=== PATIENT | male | born 1990 | race Caucasian/White ===

== ENCOUNTER 2020-11-20 03:36 | Observation (INO) | payer OTHER, SELFPAY ==
[2020-11-20] VITALS (11 sets, daily range): BP systolic 110–150; BP diastolic 62–89; PULSE 84–118; RESP 15–20; TEMP 36.9–37.3; O2SAT 97–100; BMI 28.5
--- NOTE | ~2020-11-20 | CT_ITS ---
EXAMINATION: CT abdomen pelvis w con EXAM DATE: 11/20/2020 05:20 INDICATION: Incarcerated hernia. Right-sided abdominal pain radiating in the pelvis. TECHNIQUE: Spiral CT of the abdomen and pelvis was performed following intravenous injection of 100 m L Omnipaque 350. Axial, coronal and sagittal images of the abdomen and pelvis were reviewed. The do se-length product (DLP) for this examination was 456.19 mGy-cm. The exposure was tailored according to patient size (auto mA exposure control), and iterative reconstruction (ASIR) was used as additiona l dose reduction technique. There is no prior study for comparison. FINDINGS: There is large right-sided hydrocele. There is heterogeneous density to the right testicle. There is heterogeneous right-sided retroperitoneal mass measuring 6 x 6 x 10 cm causing some mass ef fect on the IVC and right common iliac vein, appearance more consistent with necrotic heterogeneously enhancing lymph node than hematoma. There is adjacent inflammation. The right kidney is pelvic in lo cation. There is no hydronephrosis. The liver, spleen, adrenal glands and pancreas are unremarkable. Gallbladder is unremarkable. No bi liary obstruction. The prostate is unremarkable. The bladder is unremarkable. There is no retrop eritoneal or pelvic lymphadenopathy. There are no findings to suggest appendicitis. The stomach and small bowel are unremarkable. There is expected amount of colonic stool. No free intraperitoneal gas. The heart is normal in size. T here are no pericardial or pleural effusions. The lung bases are unremarkable. The bones are unrema rkable. IMPRESSION: 1. Large retroperitoneal mass, could be metastatic lymphadenopathy given abnormal morphology to righ t testicle with large surrounding hydrocele. Hematoma less likely. 2. Right pelvic kidney, congenital variant. Reviewed, dictated and finalized at location A. IMPRESSION: 1. Large retroperitoneal mass, could be metastatic lymphadenopathy given abnor mal morphology to right testicle with large surrounding hydrocele. Hematoma le ss likely. 2. Right pelvic kidney, congenital variant.
--- NOTE | ~2020-11-20 | US_ITS ---
EXAMINATION: US scrotum doppler EXAM DATE: 11/20/2020 07:26 INDICATION: Testicular abnormality Testicular swelling . TECHNIQUE: Multiple grayscale and Doppler images of the testicles and scrotum were obtained bilateral ly. Correlation is made to CT abdomen pelvis same date. FINDINGS: Right testicle measures 5.0 x 4.3 x 3.4 cm and has diffusely abnormal heterogeneous hypoechoic echoge nicity. This is surrounded by a massive right-sided hydrocele. Two Doppler signals were obtained, one demonstrating expected low resistance arterial flow and the other has lower peak with apparent loss of diastolic flow. There are some echogenic foci within this testicle. Differential diagnosis for the se findings includes testicular neoplasm such as seminoma, which is favored diagnosis given CT obtain ed at same time, or sequela from prior, or subacute vascular compromise. Left testicle measures 5.2 x 3.7 x 2.1 cm and is morphologically normal. Low resistance Doppler flow confirmed. The epididymis is unremarkable. There is no hydrocele or varicocele. IMPRESSION: 1. Severe right hydrocele and diffusely abnormal heterogeneous testicular parenchyma, suspected more likely cancer given CT findings rather than sequela from prior or subacute vascular compromise (from intermittent or prior torsion, or the hydrocele). 2. Normal left testicle. Reviewed, dictated and finalized at location A. IMPRESSION: 1. Severe right hydrocele and diffusely abnormal heterogeneous testicular pare nchyma, suspected more likely cancer given CT findings rather than sequela from prior or subacute vascular compromise (from intermittent or prior torsion, or the hydrocele). 2. Normal left testicle.
[2020-11-20 04:22] LABS: Basophils Absolute Auto 0.1 K/mm3 (0.0-0.1); Basophils Percent Auto 0.3 % (0.2-1.2); Eosinophils Absolute Auto 0.1 K/mm3 (0-0.3); Eosinophils Percent Auto 0.3 % (0-4.4); Hematocrit 42.1 % (42.0-52.0); Immature Granulocyte Absolute 0.08 K/mm3 (0.00-0.031); Immature Granulocyte Percent A 0.5 % (0-0.5); Lymphocytes Absolute Auto 1.99 K/mm3 (0.9-3.2); Lymphocytes Percent Auto 12.3 % (18.3-44.2); Mean Corpuscular HGB Conc 35.6 g/dl (32-36); Mean Corpuscular Hemoglobin 31.6 pg (26-34); Mean Corpuscular Volume 88.8 fl (80-100); Mean Platelet Volume 9.5 fl (7.4-10.4); Monocytes Absolute Auto 2.3 K/mm3 (0.1-0.6); Monocytes Percent Auto 13.9 % (2.6-8.5); Neutrophils Absolute Auto 11.7 K/mm3 (1.3-6.7); Neutrophils Percent Auto 72.7 % (45.5-73.1); Platelet Count Result 260 k/mm3 (150-375); Red Blood Count 4.74 M/mm3 (4.6-6.20); Red Cell Distribution Width 12.7 % (11.5-14.5); White Blood Count 16.1 K/mm3 (4.5-10.0)
[2020-11-20] MEDS: SODIUM CHLORIDE 0.9% IV 1,000 ML 999 ML IV CONT ×2 (04:22→07:11)
[2020-11-20] MEDS: ONDANSETRON INJ 4 MG/2 ML VIAL IV PUSH ×2 (04:23→23:05)
[2020-11-20] MEDS: MORPHINE SULFATE (*CRX) 4 MG/ML INJ IV PUSH ×2 (04:23→23:05)
[2020-11-20 04:49] LABS: Alanine Aminotransferase 26 U/L (4-50); Albumin Level 4.3 g/dL (3.5-5.1); Alkaline Phosphatase 81 U/L (38-126); Anion Gap 5 mmol/L (8-16); Aspartate Amino Transferase 27 U/L (17-59); Bilirubin,Total 0.6 mg/dL (0.2-1.3); Blood Urea Nitrogen 12 mg/dL (9-20); Calcium 9.3 mg/dL (8.4-10.2); Carbon Dioxide 31 mmol/L (22-30); Chloride 97 mmol/L (98-107); Estimated CRCL calculation 81 ml/min; Estimated Glomerular Filt Rate > 60; Glucose 110 mg/dL (65-110); Potassium 3.9 mmol/L (3.4-5.0); Sodium 133 mmol/L (137-145)
[2020-11-20 04:50] LABS: Lactic Acid Reflex 0.9 mmol/L (0.7-2.1)
--- NOTE | 2020-11-20 04:55 | PC.NURSE ---
Pt to CT via stretcher at this time.
--- NOTE | 2020-11-20 05:58 | ED.GENADULT ---
HPI - General Adult General Chief complaint: Abdominal Pain Stated complaint: right inguinal hernia Time Seen by Provider: 11/20/20 03:59 History of Present Illness HPI narrative: Patient is a 30-year-old male who presents ER with swelling to his groin region. Ongoing over the last couple months. Waxes and wanes in intensity of pain. Reports he has had increased discomfort over the last 3 days and that he developed subjective fever this evening. This prompted him to come in tonight. Reports history of inguinal hernia repair past. Reports he does not have a bowel movement in 3 days but has no abdominal distention. He is passing gas. No nausea or vomiting or belching. No difficulty urinating. Related Data Home Medications Medication Instructions Recorded Confirmed No Home Medications 11/20/20 11/20/20 Allergies Allergy/AdvReac Type Severity Reaction Status Date / Time No Known Allergies Allergy Unknown Verified 11/20/20 03:44 Review of Systems Review of Systems: All systems reviewed & are unremarkable except as noted in HPI and below Constitutional: Constitutional: Denies chills, Denies fever(s) and Denies weakness ENT: Denies nasal congestion and Denies sore throat Gastrointestinal: Gastrointestinal: Denies abdominal pain, Denies bloating, Reports constipation, Denies diarrhea, Denies nausea and Denies vomiting Genitourinary: Genitourinary: Denies dysuria, Denies testicular pain, Denies urinary frequency and Denies urinary incontinence PMF Past Medical History Medical History (Updated 11/20/20 @ 07:36 by Orlin Chapman MD) Healthy adult male Pelvic kidney Surgical History Surgical History (Updated 11/20/20 @ 07:31 by Orlin Chapman MD) H/O inguinal hernia repair Social History Social History (Updated 11/20/20 @ 07:31 by Orlin Chapman MD) Smoking status: Former smoker Exam Narrative: GENERAL: Well-appearing, well-nourished, and in no acute distress. HEAD: Normocephalic, atraumatic. ENT: Mucous membranes moist. CHEST: Clear to auscultation. No respiratory distress. HEART: Regular rate and rhythm. Normal peripheral pulses. ABDOMEN: Soft, nontender, nondistended. : Prominent swelling right inguinal region extending into the right scrotum. Right testicle appears affixed this swelling. It is not reducible. No testicular tenderness. Normal-appearing penis. Left testicle normal. EXTREMITIES: Normal range of motion. No edema. SKIN: Warm, dry, no rash. NEURO: Alert and oriented x3. PSYCH: Normal mood and affect. Course Reevaluation(s) Reevaluation #1: Patient informed of results. He says in hindsight he has had some right upper quadrant abdominal discomfort over the last couple months but has not been severe. Is worse with certain movements and bending. He denies any weight loss. I have contacted [facility] and Dr. Hernandes with the hospitalist service has accepted the patient. We will obtain ultrasound while waiting for transfer. Patient is aware of the seriousness of his condition and the location of the masses. I have also updated the patient's uncle and his significant other at his request. Date: 11/20/20 Time: 07:00 Reevaluation #2: It has been over 12 hours and we are still waiting on a bed at [facility]. Patient be admitted for observation at this hospital while we wait for bed. Date: 11/20/20 Time: 22:00 Vital Signs Vital signs: Vital Signs Temperature 98.5 F 11/20/20 03:40 Pulse Rate 110 H 11/20/20 03:40 Respiratory Rate 20 11/20/20 03:40 Blood Pressure 150/89 H 11/20/20 03:40 Pulse Oximetry 100 11/20/20 03:40 Temperature 98.5 F 11/20/20 03:40 Pulse Rate 84 11/20/20 18:40 Respiratory Rate 16 11/20/20 18:40 Blood Pressure 128/64 11/20/20 18:40 Pulse Oximetry 98 11/20/20 18:40 Medical Decision Making Vital Signs Vital Signs: Vital Signs Temperature 98.5 F 11/20/20 03:40 Pulse Rate 110 H 11/20/20 03:40 Respiratory Rate 20
--- NOTE | 2020-11-20 06:53 | PC.NURSE ---
This RN spoke with Saumya at [facility]. States she will call when pt has a bed.
[2020-11-20 07:10] LABS: EDCOVIDSCREEN Negative (Negative)
--- NOTE | 2020-11-20 12:25 | PC.NURSE ---
pt aware of delay. no needs at this time. resting in room
--- NOTE | 2020-11-20 17:00 | PC.NURSE ---
still no update on bed, orders received for pain and nausea prn's. given food and drinks. no other needs at this time
--- NOTE | 2020-11-20 20:08 | PC.NURSE ---
pt in room, resting, no needs at this time, no updates from Prashant
--- NOTE | 2020-11-20 22:17 | PC.NURSE ---
pt to be admitted to floor due to length of wait.
--- NOTE | 2020-11-20 23:10 | PM.IMHP ---
H&P: HPI History of Present Illness Date/Time: 11/20/20 23:10 this is a 30-year-old male patient who has had a past medical history of having inguinal hernia x2 in the past with repair. The patient stated that he is noticed that he has had a larger scrotum on the right for several months. The patient stated he felt that this was just another hernia and was not able to get it checked out. The patient came to the emergency room due to swelling and increased pain to his right groin. This is ongoing for several months it waxes and wanes in intensity of pain. Over last 3 days his pain is gotten worse and he feels that he has a fever objectively. The patient stated he has not had a bowel movement in 3 days he is passing gas. He does not have any nausea vomiting and no difficulty urinating. Abdominal CT was read as large retroperitoneal mass, could be metastatic lymphadenopathy given abnormal morphology to right testicle with large surrounding Hydrocil hematoma least likely. Right pelvic kidney congenital variant. [facility] had been notified and had been accepted however no beds are available at this time. Is recommended that an ultrasound be obtained. They ultrasound was read as1. Severe right hydrocele and diffusely abnormal heterogeneous testicular parenchyma, suspected more likely cancer given CT findings rather than sequela from prior or subacute vascular compromise (from intermittent or prior torsion, or the hydrocele). 2. Normal left testicle. The patient was given Zofran, morphine, Tylenol, and IV fluids. The patient had been down in the emergency room since 558 this morning and is awaiting a bed for [facility]. Report was given to my collaborative Dr.. Vega who agreed to the admission into the hospital to the patient can get a bed at [facility]. Patient's white count is 16.1. The patient is being admitted to observation status on date of service 11/20/2020 Chief Complaint: Right scrotal pain Review of Systems Review of Systems: All systems reviewed & are unremarkable except as noted in HPI and below Constitutional: Constitutional: Reports as per HPI and Reports no additional constitutional complaints Eyes: Eyes: Reports as per HPI and Reports no additional eye complaints ENT: Reports system reviewed and no additional complaints, except as documented and Reports Normal hearing present Cardiovascular: Cardiovascular: Reports no additional cardiovascular complaints Respiratory: Respiratory: Reports no additional respiratory complaints and Reports no additional respiratory complaints Gastrointestinal: Gastrointestinal: Reports as per HPI and Reports no additional gastrointestinal complaints Musculoskeletal: Musculoskeletal: Reports no additional musculoskeletal complaints Integumentary/Breasts: Skin/Breast: Reports system reviewed and no additional complaints, except as docu and Reports as per HPI Neurologic: Reports system reviewed and no additional complaints, except as documented, Reports as per HPI and Reports Normal hearing present Psychiatric: Psychiatric: Reports no additional psychiatric complaints and Reports as per HPI Endocrine: Endocrine: Reports no additional endocrine complaints Hematologic/Lymphatic: Hematologic/Lymphatic: Reports no additional hematologic/lymphatic complaints Allergic/Immunologic: Allergic/Immunologic: Reports no additional allergic/immunologic complaints [facility] Past Medical History Medical History (Updated 11/20/20 @ 23:18 by Sanjana Vu NP) Healthy adult male Pelvic kidney Tobacco abuse Surgical History Surgical History (Updated 11/20/20 @ 23:19 by Sanjana Vu NP) H/O inguinal hernia repair X2 Family History Family History (Updated 11/20/20 @ 23:20 by Sanjana Vu NP) Mother Breast cancer Father Diabetes mellitus Social History Social History (Updated 11/20/20 @ 23:20 by Sanjana Vu NP) Social History: The patient is from his and he has 3 children. Th
--- NOTE | 2020-11-20 23:51 | ADMGEN ---
This patient, Nash Rod, was admitted to [facility]. Patient/family oriented to hospital policies and general routines including ID bracelet, bed and alarms, visiting hours, pain management, procedures, bathroom and other care routines, personal items, smoking policy, room service/diet, and visiting hours. Information on how to activate the Rapid Response Team has been discussed. Patient/Family are encouraged to report perceived risks to care and to ask questions if they do not understand what they are told or what they should do.
[2020-11-20] MEDS: HYDROcodone/acetaminophen (*CRX) 5-325 MG TABLET 1 TAB PO (23:58)
[2020-11-20] MEDS: NICOTINE (*PBKC) 21 MG PATCH 1 PATCH TRANSDERM (23:59)
[2020-11-21 05:36] VITALS: BP 117/82; PULSE 78; RESP 16; TEMP 36.9; O2SAT 98
[2020-11-21] MEDS: MORPHINE SULFATE (*CRX) 4 MG/ML INJ IV PUSH (05:43)
[2020-11-21 06:59] LABS: Alanine Aminotransferase 24 U/L (4-50); Albumin Level 3.7 g/dL (3.5-5.1); Alkaline Phosphatase 74 U/L (38-126); Anion Gap 6 mmol/L (8-16); Aspartate Amino Transferase 23 U/L (17-59); Bilirubin,Total 0.5 mg/dL (0.2-1.3); Blood Urea Nitrogen 12 mg/dL (9-20); Calcium 8.9 mg/dL (8.4-10.2); Carbon Dioxide 31 mmol/L (22-30); Chloride 100 mmol/L (98-107); Estimated CRCL calculation 88 ml/min; Estimated Glomerular Filt Rate > 60; Glucose 89 mg/dL (65-110); Lactate Dehydrogenase 1584 U/L (313-618); Magnesium 2.2 mg/dL (1.6-2.3); Potassium 4.8 mmol/L (3.4-5.0); Sodium 137 mmol/L (137-145)
[2020-11-21 07:38] LABS: Basophils Absolute Auto 0.1 K/mm3 (0.0-0.1); Basophils Percent Auto 0.6 % (0.2-1.2); Eosinophils Absolute Auto 0.2 K/mm3 (0-0.3); Eosinophils Percent Auto 2.1 % (0-4.4); Hematocrit 39.7 % (42.0-52.0); Hemoglobin 13.2 g/dL (14.0-18.0); Immature Granulocyte Absolute 0.05 K/mm3 (0.00-0.031); Immature Granulocyte Percent A 0.5 % (0-0.5); Lymphocytes Absolute Auto 2.26 K/mm3 (0.9-3.2); Lymphocytes Percent Auto 21.8 % (18.3-44.2); Mean Corpuscular HGB Conc 33.2 g/dl (32-36); Mean Corpuscular Hemoglobin 30.8 pg (26-34); Mean Corpuscular Volume 92.5 fl (80-100); Monocytes Absolute Auto 1.6 K/mm3 (0.1-0.6); Monocytes Percent Auto 14.9 % (2.6-8.5); Neutrophils Absolute Auto 6.3 K/mm3 (1.3-6.7); Neutrophils Percent Auto 60.1 % (45.5-73.1); Platelet Count Result 276 k/mm3 (150-375); Red Blood Count 4.29 M/mm3 (4.6-6.20); Red Cell Distribution Width 13.2 % (11.5-14.5); White Blood Count 10.4 K/mm3 (4.5-10.0)
[2020-11-21 07:54] VITALS: BP 134/79; PULSE 77; RESP 16; TEMP 36.7; O2SAT 94
[2020-11-21] MEDS: NICOTINE (*PBKC) 21 MG PATCH 1 PATCH TRANSDERM (08:31)
[2020-11-21] MEDS: DOCUSATE SODIUM 100 MG CAPSULE PO (08:31)
[2020-11-21] MEDS: HYDROcodone/acetaminophen (*CRX) 5-325 MG TABLET 1 TAB PO (08:35)
--- NOTE | 2020-11-21 10:43 | PM.TDS ---
Transfer Discharge Sum: Prov Provider Date of admission: 11/20/20 21:59 Primary care physician: SENIOR FIRE PROTECTION ENGINEER PHYSICIAN Admitting clinician: Molina Gerardo MD Attending physician on admission: Molina Gerardo Attending physician on discharge: Bridget Sheldon Discharging clinician: Jamari Noel Anticipated date of transfer: 11/21/20 Receiving physician/facility: [facility] DS: Admitting Diagnosis Discharge Date 11/21/20 at 10:00am Admitting Diagnosis Enlarged right testicle possible cancer with lymphadenopathy in the right inguinal area DS: Discharge Diagnosis Discharge Diagnosis (1) Mass of right testicle: Code(s): N50.89 - Other specified disorders of the male genital organs Status: Acute Assessment and Plan: The patient is awaiting a bed at [facility]. The patient is wanting to see his children and was wanting to leave the hospital. I explained to him that he is on a waiting list to go to [facility] however if he signs out against medical advice that he will lose his spot for bed. The patient stated that he just wanted to go home and be with his kids. It was explained to him that he would have to sign out against medical advice if he wanted to go home. The patient requested to see his children prior to leaving this hospital to get in the ambulance to go to [facility]. I spoke with the datawarehouse developer who stated that the patient would be able to see his family outside while getting into the ambulance to go to [facility] during her shift however she could not guarantee this for the next shift. The patient was then agreeable to stay in the hospital overnight and wait for a bed at [facility]. At this time I did not anticoagulate the patient in the event that the patient would need to have a biopsy or surgical procedure. I explained to the patient that he would be best served at [facility] due to the complexity of his condition. The patient verbalized understanding. Patient got a bed at [facility] and report has been given, patient is worried and is experiencing anxiety (2) Hydrocele: Code(s): N43.3 - Hydrocele, unspecified Status: Acute Assessment and Plan: See the CT results and ultrasound results. Continue with pain medication. (3) Intraabdominal mass: Code(s): R19.00 - Intra-abdominal and pelvic swelling, mass and lump, unspecified site Status: Acute Assessment and Plan: Continue with pain medication. (4) Tobacco abuse: Code(s): Z72.0 - Tobacco use Status: Chronic Assessment and Plan: We have spent approximately 5 minutes talking about smoking cessation and the patient is agreeable to nicotine patch. Transfer Discharge Sum: Med Medications Active and Home Medications: Home Medications No Home Medications 11/20/20 [History Confirmed 11/20/20] Active Medications Acetaminophen (Acetaminophen 325 Mg Tablet) 650 mg PO Q4H PRN PRN Reason: Mild Pain (1-3) or Fever Hydrocodone Bitart/Acetaminophen (Hydrocodone/Acetaminophen (*Crx) 5-325 Mg Tablet) 1 tab PO Q4H PRN PRN Reason: Pain Rated 4-6 Last Admin: 11/21/20 08:35 Dose: 1 tab Documented by: Docusate Sodium (Docusate Sodium 100 Mg Capsule) 100 mg PO Q12HR [facility] Last Admin: 11/21/20 08:31 Dose: 100 mg Documented by: Lorazepam (Lorazepam Inj (*Crx) 2 Mg/Ml Vial) 0.5 mg IV PUSH Q6H PRN PRN Reason: Anxiety Miconazole Nitrate (Miconazole 2% Antifungal Ointment 56 Gm) 1 applic TOPICAL Q12HR [facility] Last Admin: 11/21/20 08:30 Dose: Not Given Documented by: Morphine Sulfate (Morphine Sulfate (*Crx) 4 Mg/Ml Inj) 4 mg IV PUSH Q2H PRN PRN Reason: Pain Rated 7-10 Last Admin: 11/21/20 05:43 Dose: 4 mg Documented by: Nicotine (Nicotine (*Pbkc) 21 Mg Patch) [facility] Last Admin: 11/21/20 08:31 Dose: 1 patch Documented by: Ondansetron HCl (Ondansetron Inj 4 Mg/2 Ml Vial) 4 mg IV PUSH Q4H PRN PRN Reason: Nausea Last Admin: 11/20/20 23:05 Dose: 4 mg Documented
== END 2020-11-21 11:04 ==
LOC: ANHED 22:01 → ANHCPC 23:44
PROVIDERS: Nurse Practitioner; Admitting Provider Internal Medicine; Emergency Provider Emergency Medicine; Visit Provider Internal Medicine
DX: R19.09 Other intra-abdominal and pelvic swelling, mass and lump (principal); N50.89 Other specified disorders of the male genital organs; N43.3 Hydrocele, unspecified; F17.210 Nicotine dependence, cigarettes, uncomplicated; R41.9 Unspecified symptoms and signs involving cognitive functions and awareness; Z20.822 Contact with and (suspected) exposure to COVID-19
CPT/HCPCS: 36415; 74177; 76870; 80053; 83605; 83615; 83735; 84443; 85025; 87426; 93976; 96361; 96374; 96375; 96376; 99285; A9270; C9803; G0378; G0379; J2270; J2405; J7030; Q9967

== ENCOUNTER 2022-03-20 08:30 | Outpatient (CLI) | payer OTHER, SELFPAY ==
[2022-03-20 09:55] LABS: Basophils Absolute Auto 0.1 K/mm3 (0.0-0.1); Basophils Percent Auto 0.6 % (0.2-1.2); Eosinophils Absolute Auto 0.1 K/mm3 (0-0.3); Eosinophils Percent Auto 1.5 % (0-4.4); Hemoglobin 16.2 g/dL (14.0-18.0); Immature Granulocyte Absolute 0.05 K/mm3 (0.00-0.031); Immature Granulocyte Percent A 0.5 % (0-0.5); Lymphocytes Absolute Auto 1.32 K/mm3 (0.9-3.2); Lymphocytes Percent Auto 14.1 % (18.3-44.2); Mean Corpuscular HGB Conc 33.1 g/dl (32-36); Mean Corpuscular Hemoglobin 30.3 pg (26-34); Mean Corpuscular Volume 91.6 fl (80-100); Mean Platelet Volume 9.3 fl (7.4-10.4); Monocytes Percent Auto 10.9 % (2.6-8.5); Neutrophils Absolute Auto 6.8 K/mm3 (1.3-6.7); Neutrophils Percent Auto 72.4 % (45.5-73.1); Platelet Count Result 450 k/mm3 (150-375); Red Blood Count 5.35 M/mm3 (4.6-6.20); Red Cell Distribution Width 12.9 % (11.5-14.5); White Blood Count 9.3 K/mm3 (4.5-10.0)
[2022-03-20 10:07] LABS: Alanine Aminotransferase 128 U/L (6-50); Albumin Level 4.3 g/dL (3.5-5.1); Alkaline Phosphatase 102 U/L (38-126); Anion Gap 7 mmol/L (8-16); Aspartate Amino Transferase 62 U/L (17-59); Bilirubin,Total 0.4 mg/dL (0.2-1.3); Blood Urea Nitrogen 12 mg/dL (9-20); Calcium 9.1 mg/dL (8.4-10.2); Carbon Dioxide 28 mmol/L (22-30); Chloride 103 mmol/L (98-107); Cholesterol 156 mg/dL (0-200); Estimated Glomerular Filt Rate > 60; Glucose 74 mg/dL (65-110); HDL Direct 47 mg/dL; Potassium 4.5 mmol/L (3.4-5.0); Sodium 138 mmol/L (137-145); Triglycerides 109 mg/dL (<150)
[2022-03-20 10:19] LABS: LDL Cholesterol Direct 72 mg/dL
[2022-03-20 10:39] LABS: Thyroid Stimulating Hormone 0.899 uIU/mL (0.465-4.680)
[2022-03-20 12:02] LABS: Hepatitis C Virus Antibody Negative (Negative)
[2022-03-20 13:32] LABS: Vitamin D 25 Hydroxy 21.7 ng/mL
[2022-03-21 13:54] LABS: Rapid Plasma Reagin Reactive (NonReactive)
[2022-03-22 14:37] LABS: HIV 1 2 Ag Ab 4th Gen w Rflxs Non-reactive (Non-reactive)
[2022-03-23 19:21] LABS: Treponema pallidum Ab FTA ABS Reactive (Nonreactive)
[2022-03-24 08:47] LABS: HSV 1 IgM Screen Negative (Negative); HSV 2 IgM Screen Negative (Negative)
== END 2022-03-20 08:31 | disposition home or self-care (01) ==
LOC: ANHLAB 08:33
DX: F63.0 Pathological gambling (principal)
CPT/HCPCS: 36415; 80053; 80061; 82306; 83036; 84443; 85025; 86592; 86695; 86696; 86780; 86803; 87389; 87491; 87591; 87661

== ENCOUNTER 2023-03-29 15:54 | Emergency (ER) | payer OTHER, SELFPAY ==
--- NOTE | 2023-03-29 16:05 | ED.URI ---
HPI - URI/Sore Throat General Chief Complaint: Upper Respiratory Infection Stated Complaint: Sinus/Ear Irritation Time Seen by Provider: 03/29/23 16:06 Source: patient Mode of arrival: ambulatory Limitations: no limitations History of Present Illness HPI Narrative: Nash is a 32-year-old male patient presenting to clinic today with complaints sinus congestion, cough, and chest congestion times 2-3 weeks. Reports he is bringing up some green/yellow phlegm. Does have a lot of sinus pressure and congestion. No known fever or chills. Denies any chest pain or shortness of breath. MD elicited complaint: sore throat and nasal congestion Related Data Allergies Allergy/AdvReac Type Severity Reaction Status Date / Time No Known Allergies Allergy Unknown Verified 11/20/20 03:44 Review of Systems Review of Systems: Pertinent positives per HPI. Patient denies any fever, chills, rash, headache, visual changes, dizziness, shortness of breath, chest pain, palpitations, nausea, vomiting, diarrhea, constipation, abdominal pain, or any urinary issues. [facility] Past Medical History Medical History (Updated 03/29/23 @ 16:14 by Cedric Mcneill APRN) Healthy adult male Pelvic kidney Tobacco abuse Surgical History Surgical History (Updated 11/20/20 @ 23:19 by Sanjana Vu NP) H/O inguinal hernia repair X2 Family History Family History (Updated 11/20/20 @ 23:20 by Sanjana Vu NP) Mother Breast cancer Father Diabetes mellitus Social History Social History (Updated 11/20/20 @ 23:20 by Sanjana Vu NP) Social History: The patient is from his and he has 3 children. The patient is unemployed. He lives with his uncle. The patient occasionally uses marijuana. He quit drinking some time back. The patient smokes a pack a cigarettes a day. The patient stated that his aunt Jimena Rod is his durable power of abrasive water jet cutter operator for healthcare. The patient desires to be a full code. Smoking packs per day: 1 Smoking cigarettes per day: 20.0 Years smoked: 15 Smoking pack-years: 15.00 Smoking status: Current every day smoker Tobacco type: cigarettes Alcohol intake: never Substance use: never Spiritual care concerns: No Comments At the time of my signature, I reviewed and agree with the nursing past medical, surgical, social, and family history. There is no relevant family history pertinent to the patient complaint. Exam Narrative: General: Well-developed, well nourished, in no apparent distress Head: Normocephalic, atraumatic Eyes: Pupils equally round and reactive to light bilaterally, EOM intact, sclera and conjunctive clear, no discharge, lids normal Ears: TMs intact and congested, ear canals clear, no drainage, grossly hearing normal. Nose: Nares patent, yellow nasal discharge, moderate inflammation, maxillary and frontal sinus tenderness. Mouth: Oral pharynx red without lesions or masses, good dentition, MMM. Neck: Supple, trachea midline, no enlargement of anterior or posterior cervical nodes, no thyroid masses or goiter palpable. Cardio: Regular rate and rhythm, s1 and s2 normal, no murmur appreciated. Resp: Clear to auscultation bilaterally, no rhonchi, rales, wheezing or rubs Course Course Emergency Course: Portions of this record may have been created with voice recognition software. Level of Care: Express Care Visit Vital Signs Vital signs: Vital signs reviewed MDM - URI/Sore Throat MDM Narrative Medical decision making narrative: At the time of visit patient is resting comfortably on the exam table. Patient appears to be nontoxic. Plan: Discussed patient's high blood pressure in the clinic today. Will send him in some prednisone but told him to check his blood pressure prior to taking this as the prednisone can increase it. Will also place him on Augmentin to treat acute bacterial rhino sinusitis. Supportive measures were discussed with the pa
[2023-03-29 16:08] VITALS: BP 163/90; PULSE 98; RESP 16; TEMP 37.1; O2SAT 98
== END 2023-03-29 16:18 | disposition home or self-care (01) ==
PROVIDERS: Emergency Provider Nurse Practitioner Family
DX: J01.90 Acute sinusitis, unspecified (principal); F17.210 Nicotine dependence, cigarettes, uncomplicated
CPT/HCPCS: 99213; G0463

== ENCOUNTER 2024-02-12 08:00 | Emergency (ER) | payer BC, SELFPAY ==
--- NOTE | ~2024-02-12 | CT_ITS ---
CT abdomen pelvis w con Ordering provider: Clarence Delaney MD History: 33 years Male with . LUQ pain . Comparison: None. Technique: CT abdomen and pelvis with IV and without oral contrast. Automated exposure control and it erative reconstruction technique were employed. The dose-length product was 574.29 mGy-cm. 100 mL Omn ipaque 350 was given IV. Findings: VISUALIZED LOWER CHEST: Normal. Trace of pericardial effusion. UPPER ABDOMINAL ORGANS: Liver: Normal. Gallbladder: Normal. Spleen: Normal. Stomach/duodenum: Normal. Pancreas: Normal. Adrenals: Normal. Kidneys: Minimal fullness of the left renal pelvis is noted. No stones seen.. Ectopic right kidney in the right side of the pelvis is seen PELVIC ORGANS: The bladder shows slight thickening in the posterior wall. BOWEL AND MESENTERY: Colon: No evidence of diverticulitis. Fecal material is loaded in the colon suggestive of constipatio n. Spastic areas seen in the sigmoid colon. Normal appendix. Small Bowel: Normal. No obstruction. Peritoneum/mesentery: No free air or free fluid. No mesenteric lymphadenopathy. Small mesenteric lymp h nodes are noted. RETROPERITONEUM: Normal aorta. Single origin of the celiac and superior mesenteric arteries. No retr operitoneal lymphadenopathy. MUSCULOSKELETAL: Superficial soft tissues: The superficial soft tissues are normal. Bones: Normal spine. IMPRESSION: 1. No evidence of appendicitis, diverticulitis or intestinal obstruction. 2. Ectopic right kidney seen in the right side of pelvis. 3. Minimal fullness of the left renal pelvis with no stones. 4. Slight thickening of the wall of the bladder posteriorly. Clinical evaluation advised. 5. Constipation. Reviewed, dictated and finalized at location A. OUT WORKER IMPRESSION: 1. No evidence of appendicitis, diverticulitis or intestinal obstruction. 2. Ectopic right kidney seen in the right side of pelvis. 3. Minimal fullness of the left renal pelvis with no stones. 4. Slight thickening of the wall of the bladder posteriorly. Clinical evaluati on advised. 5. Constipation.
[2024-02-12 08:06] VITALS: BP 143/87; PULSE 77; RESP 18; O2SAT 100
[2024-02-12 08:42] LABS: Basophils Absolute Auto 0.1 K/mm3 (0.0-0.1); Basophils Percent Auto 0.5 % (0.2-1.2); Eosinophils Absolute Auto 0.2 K/mm3 (0-0.3); Eosinophils Percent Auto 1.5 % (0-4.4); Hematocrit 42.5 % (42.0-52.0); Hemoglobin 14.9 g/dL (14.0-18.0); Immature Granulocyte Absolute 0.03 K/mm3 (0.00-0.031); Immature Granulocyte Percent A 0.3 % (0-0.5); Lymphocytes Absolute Auto 1.58 K/mm3 (0.9-3.2); Lymphocytes Percent Auto 15.7 % (18.3-44.2); Mean Corpuscular HGB Conc 35.1 g/dl (32-36); Mean Corpuscular Hemoglobin 31.1 pg (26-34); Mean Corpuscular Volume 88.7 fl (80-100); Mean Platelet Volume 9.6 fl (7.4-10.4); Monocytes Absolute Auto 0.7 K/mm3 (0.1-0.6); Monocytes Percent Auto 6.7 % (2.6-8.5); Neutrophils Absolute Auto 7.6 K/mm3 (1.3-6.7); Neutrophils Percent Auto 75.3 % (45.5-73.1); Platelet Count Result 302 k/mm3 (150-375); Red Blood Count 4.79 M/mm3 (4.6-6.20); Red Cell Distribution Width 12.2 % (11.5-14.5)
[2024-02-12 08:48] LABS: Add Urine Microscopic? NO; Appearance Urine Clear (Clear); Bilirubin Urine Negative (Negative); Blood Urine Negative (Negative); Color Urine Yellow (Yellow); Glucose Urine UA Negative (Negative); Ketones Urine Negative (Negative); Leukocyte Esterase Ur Negative LEU/UL (Negative); Nitrate Urine Negative (Negative); Protein Urine Negative (Negative); Specific Grav Ur 1.006 (1.001-1.035); Urobilinogen Urine 0.2 mg/dL (<2.0); pH Urine 5.5 (5.0-9.0)
[2024-02-12 09:03] LABS: Estimated CRCL calculation 93 ml/min; Estimated Glomerular Filt Rate > 60
[2024-02-12 09:05] LABS: Alanine Aminotransferase 33 U/L (6-50); Albumin Level 4.6 g/dL (3.5-5.1); Alkaline Phosphatase 85 U/L (38-126); Anion Gap 6 mmol/L (4-12); Aspartate Amino Transferase 39 U/L (17-59); Bilirubin,Total 0.5 mg/dL (0.2-1.3); Blood Urea Nitrogen 18 mg/dL (9-20); Calcium 9.5 mg/dL (8.4-10.2); Carbon Dioxide 28 mmol/L (22-30); Chloride 105 mmol/L (98-107); Estimated CRCL calculation 93 ml/min; Estimated Glomerular Filt Rate > 60; Glucose 104 mg/dL (65-110); Lipase 372 U/L (23-300); Potassium 4.3 mmol/L (3.4-5.0); Sodium 139 mmol/L (137-145)
--- NOTE | 2024-02-12 09:59 | ED.ABDPAIN ---
HPI - Abdominal Pain General Chief Complaint: Abdominal Pain Stated Complaint: left flank pain Time Seen by Provider: 02/12/24 08:06 Source: patient Mode of arrival: ambulatory Limitations: no limitations History of Present Illness HPI narrative: 33-year-old with a history of testicular cancer under remission here with the complaints of left upper abdominal pain for past few days. 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 He denies having any nausea, vomiting or diarrhea. Patient states that it has a tender spot on the left lower rib margin. MD elicited complaint: abdominal pain Pertinent past history: none Onset (ago): week(s) (1) Pain Consistency: constant Location: LUQ Severity: moderate Quality: aching Radiation: none Migration to: no migration Exacerbating factors: movement Relieving factors: nothing Context: confirms other (Heavy lifting) Associated symptoms: denies other symptoms Related Data Allergies Allergy/AdvReac Type Severity Reaction Status Date / Time No Known Allergies Allergy Unknown Verified 02/12/24 08:08 Review of Systems Review of Systems: All systems reviewed & are unremarkable except as noted in HPI and below Constitutional: Constitutional: Reports no additional constitutional complaints Eyes: Eyes: Reports no additional eye complaints Cardiovascular: Cardiovascular: Reports no additional cardiovascular complaints Gastrointestinal: Gastrointestinal: Reports as per HPI Genitourinary: Genitourinary: Reports no additional male genitourinary complaints Musculoskeletal: Musculoskeletal: Reports no additional musculoskeletal complaints [facility] Past Medical History Medical History (Updated 02/12/24 @ 10:07 by Clarence Delaney MD) Tobacco abuse Pelvic kidney Healthy adult male Surgical History Surgical History (Updated 11/20/20 @ 23:19 by Sanjana Vu NP) H/O inguinal hernia repair X2 Family History Family History (Updated 11/20/20 @ 23:20 by Sanjana Vu NP) Mother Breast cancer Father Diabetes mellitus Social History Social History (Updated 11/20/20 @ 23:20 by Sanjana Vu NP) Social History: The patient is from his and he has 3 children. The patient is unemployed. He lives with his uncle. The patient occasionally uses marijuana. He quit drinking some time back. The patient smokes a pack a cigarettes a day. The patient stated that his aunt Jimena Rod is his durable power of litigation attorney associate for healthcare. The patient desires to be a full code. Smoking packs per day: 1 Smoking cigarettes per day: 20.0 Years smoked: 15 Smoking pack-years: 15.00 Smoking status: Current every day smoker Tobacco type: cigarettes Alcohol intake: never Substance use: never Spiritual care concerns: No Exam Narrative: GENERAL: Well-appearing, well-nourished, and in no acute distress. HEAD: Normocephalic, atraumatic. EYES: PERRLA and EOMI. ENT: Nares clear, no rhinorrhea or epistaxis. Mucous membranes moist. NECK: Supple. CHEST: Clear to auscultation. No respiratory distress.tenderness in the left lower ribs HEART: Regular rate and rhythm. No murmur heard. Normal peripheral pulses. ABDOMEN: Soft, nontender, nondistended, normal active bowel sounds. EXTREMITIES: Normal range of motion. No edema. SKIN: Warm, dry, no rash. NEURO: No focal deficits. Alert and oriented x3. PSYCH: Normal mood and affect. Course Course Emergency Course: Inform him about his lab work, CT findings cause of his pain most likely is musculoskeletal from heavy lifting. Advised him to take pain medication as prescribed. Vital Signs Vital signs: Vital Signs Pulse Rate 77 02/12/24 08:06 Respiratory Rate 18 02/12/24 08:06 Blood Pressure 143/87 H 02/12/24 08:06 Pulse Oximetry 100 02/12/24 08:06 Oxygen Delivery Room Air 02/12/24 08:06 Pulse Rate 77 02/12/24 08:06 Respiratory Rate 18 02/12/24 08:06 Blood Pressure 143/87 H 02/12/24 08:06 Pulse Oximetry 100 02/12/24 08:06 Oxygen Delivery Room Air 02/12/24 08:06 MDM - Abdominal Pain Differential Diagnosis Differential diagnosis: Likely abdominal pain, diverticulitis and pancreatitis Medical Records Attestation: I reviewed the patient's medical records. Lab Data Attestation: I reviewed the patient's lab results. 02/12/24 08:35 02/12/24 09:01 Labs: Lab Results 02/12/24 02/12/24 Range/Units 08:35 09:01 WBC 10.0 (4.5-10.0) K/mm3 RBC 4.79 (4.6-6.20) M/mm3 Hgb 14.9 (14.0-18.0) g/dL Hct 42.5 (42.0-52.0) % MCV 88.7 (80-100) fl MCH 31.1 (26-34) pg MCHC 35.1 (32-36) g/dl RDW 12.2 (11.5-14.5) % Plt Count 302 (150-375) k/mm3 MPV 9.6 (7.4-10.4) fl Immature Gran % (Auto) 0.3 (0-0.5) % Neut % (Auto) 75.3 H (45.5-73.1) % Lymph % (Auto) 15.7 L (18.3-44.2) % [place] % (Auto) 6.7 (2.6-8.5) % Eos % (Auto) 1.5 (0-4.4) % Baso % (Auto) 0.5 (0.2-1.2) % Lymph # (Auto) 1.58 (0.9-3.2) K/mm3 [place] # (Auto) 0.7 H (0.1-0.6) K/mm3 Eos # (Auto) 0.2 (0-0.3) K/mm3 Baso # (Auto) 0.1 (0.0-0.1) K/mm3 Abs Immat Gran (auto) 0.03 (0.00-0.031) K/mm3 Absolute Neuts (auto) 7.6 H (1.3-6.7) K/mm3 Absolute Nucleated RBC 0.000 (0.0-0.012) K/mm3 Nucleated RBC % 0.0 (0.0-0.2) % Sodium 139 (137-145) mmol/L Potassium 4.3 (3.4-5.0) mmol/L Chloride 105 (98-107) mmol/L Carbon Dioxide 28 (22-30) mmol/L Anion Gap 6 (4-12) mmol/L BUN 18 (9-20) mg/dL Creatinine 1.10 1.10 (0.7-1.3) mg/dL Estim Creat Clear Calc 93 93 ml/min Estimated GFR > 60 > 60 (59 - ) Glucose 104 (65-110) mg/dL Calcium 9.5 (8.4-10.2) mg/dL Total Bilirubin 0.5 (0.2-1.3) mg/dL AST 39 (17-59) U/L ALT 33 (6-50) U/L Alkaline Phosphatase 85 (38-126) U/L Total Protein 8.0 (6.3-8.2) g/dL Albumin 4.6 (3.5-5.1) g/dL Lipase 372 H (23-300) U/L Urine Color Yellow (Yellow) Urine Appearance Clear (Clear) Urine pH 5.5 (5.0-9.0) Ur Specific [place] 1.006 (1.001-1.035) Urine Protein Negative (Negative) mg/dL Urine Glucose (UA) Negative (Negative) mg/dL Urine Ketones Negative (Negative) mg/dL Ur Blood (Man) Negative (Negative) Urine Nitrate Negative (Negative) Urine Bilirubin Negative (Negative) Urine Urobilinogen 0.2 (<2.0) mg/dL Leukocyte Esterase Rfl Negative (Negative) BUBBA/UL Imaging Data Radiologist's impression: ITS Impressions Abdomen/Pelvis CT 02/12/24 09:11 IMPRESSION: 1. No evidence of appendicitis, diverticulitis or intestinal obstruction. 2. Ectopic right kidney seen in the right side of pelvis. 3. Minimal fullness of the left renal pelvis with no stones. 4. Slight thickening of the wall of the bladder posteriorly. Clinical evaluation advised. 5. Constipation. Discharge Plan Discharge Clinical Impression: Abdominal pain Qualifiers: Abdominal location: left upper quadrant Qualified Code(s): R10.12 - Left upper quadrant pain Patient Disposition: Home, Self-Care Condition: Stable Instructions: Abdominal Pain (ED) Patient Language: Thai Prescriptions: New naproxen sodium [Anaprox DS] 550 mg tablet 550 mg PO BID Qty: 14 0RF No Action prednisone 20 mg tablet 40 mg PO DAILY 5 Days Qty: 10 0RF amoxicillin-pot clavulanate 875-125 mg tablet 1 tablet PO Q12H 10 Days Qty: 20 0RF Follow-up/Referrals: UNKNOWN,DOCTOR [Primary Care Provider] - Jessie Boyce DO [Physician] - Time of Disposition: 10:09
[2024-02-12 10:34] VITALS: BP 132/88; PULSE 84; RESP 16; O2SAT 98
== END 2024-02-12 10:34 | disposition home or self-care (01) ==
PROVIDERS: Emergency Provider Family Medicine
DX: R10.12 Left upper quadrant pain (principal); F17.210 Nicotine dependence, cigarettes, uncomplicated; Z85.47 Personal history of malignant neoplasm of testis; Q63.2 Ectopic kidney; K59.00 Constipation, unspecified; R93.41 Abnormal radiologic findings on diagnostic imaging of renal pelvis, ureter, or bladder
CPT/HCPCS: 36415; 74177; 80053; 81003; 83690; 85025; 99284; Q9967